=== PATIENT | female | born 1965 | race Caucasian/White ===

== ENCOUNTER 2021-11-23 16:04 | Emergency (ER) | payer BC, SELFPAY ==
[~2021-11-23] VITALS: Ht 162.6 cm; Wt 77.1 kg
[2021-11-23 16:05] VITALS: BP_SYST 122
--- NOTE | 2021-11-23 16:12 | NUR ---
Patient triaged and placed in waiting room. VSS and patient appears in no acute distress at this time. Accompanied by FAMILY, awaiting available bed, and MD notified of need for MSE.
--- NOTE | 2021-11-23 17:28 | NUR ---
DR VIRGEN OUT TO TRIAGE ROOM TO EVALUATE PT
[2021-11-23] MEDS ORDERED: CYCL10TA24 PO (19:30)
[2021-11-23] MEDS ORDERED: LIDO1ADH77 TP (19:30)
[2021-11-23] MEDS ORDERED: NAPR-688 PO (19:30)
[2021-11-23 20:00] VITALS: BP_SYST 128
== END 2021-11-23 20:35 | disposition home or self-care (01) ==
LOC: SED 16:04
DX: M54.9 Dorsalgia, unspecified (principal)
CPT/HCPCS: 71046-TC; 99283